=== PATIENT | male | born 1970 | race Caucasian/White ===

== ENCOUNTER 2024-04-08 15:30 | Emergency (ER) | payer SELFPAY ==
[2024-04-08 16:05] LABS: Absolute Eosinophils 0.1 K/uL (0-0.5); Absolute Lymphocytes (CBC) 1.1 K/uL (0.7-4.9); Absolute Monocytes 0.4 K/uL (0.1-1.3); Absolute Neutrophil 2.4 K/uL (1.8-8.0); Basophils % 0.5 % (0-1.3); Hematocrit 42.8 % (39.6-49.0); Hemoglobin 14.2 g/dL (13.6-17.9); Lymphocytes % 27.4 % (15.3-44.8); MCH 32.1 pg (27.0-35.0); MCHC 33.2 g/dL (32.0-36.0); MCV 96.7 fL (80-100); MPV 7.5 fL (7.6-11.3); Monocytes % 10.9 % (3.3-12.3); Neutrophils % 59.2 % (41.7-73.7); Platelets 161 thou/uL (152-406); RBC Red Blood Cell Count 4.42 M/uL (4.33-5.43); Red Cell Distribution Width 13.1 % (12.1-15.2)
--- NOTE | 2024-04-08 16:15 | RAD REPORT ---
EXAM DESCRIPTION: CT - Head Brain Wo Cont - 04/08/2024 4:00 pm CLINICAL HISTORY: Syncope COMPARISON: none TECHNIQUE: Computed axial tomography of the head was obtained. IV contrast was not requested. All CT scans are performed using dose optimization technique as appropriate and may include automated exposure control or mA/KV adjustment according to patient size. FINDINGS: An intracranial bleed is not seen The ventricles are normal in caliber No significant hypodense areas within the brain visualized No extra-axial fluid collection is noted. Fluid within the sinuses/ mastoids is not seen IMPRESSION: No acute intracranial abnormality is seen If patient's symptoms persist MRI of the brain would be recommended
[2024-04-08 16:22] LABS: ALT/SGPT 46 U/L (16-61); AST/SGOT 40 U/L (15-37); Albumin 3.2 g/dL (3.4-5.0); Albumin/Globulin Ratio 0.8 (1.1-1.8); Alkaline Phosphatase 59 U/L (45-117); Anion Gap 7.6 mEq/L (5.0-15.0); BUN Blood Urea Nitrogen 5 mg/dL (7-18); Bicarbonate 26 mEq/L (21-32); Bilirubin Total 0.4 mg/dL (0.2-1.0); Globulin 4.2 g/dL (2.3-3.5); Glomerular Filtration Rate 86 ml/min (=/>90); Glucose Level 109 mg/dL (74-106); Potassium 3.6 mEq/L (3.5-5.1); Protein, Total 7.4 g/dL (6.4-8.2); Sodium Level 131 mEq/L (136-145); Troponin High Sensitivity 4.3 pg/mL (<58.9)
[2024-04-08 16:26] LABS: Bilirubin Direct < 0.2 mg/dL (0-0.2); Bilirubin Indirect, Calculated 0.2 mg/dL (0.2-0.8)
--- NOTE | 2024-04-08 16:48 | RAD REPORT ---
EXAM DESCRIPTION: Rolando Single View04/08/2024 4:21 pm CLINICAL HISTORY: Syncope COMPARISON: none FINDINGS: The lungs appear clear of acute infiltrate. The heart is normal size IMPRESSION: No acute abnormalities displayed
[2024-04-08 17:44] LABS: SARS-CoV-2 Antigen CONTROL BLUE LINE VIS/BG OK; SARS-CoV-2 Antigen Rapid Res Negative (Negative)
--- NOTE | 2024-04-08 17:51 | ER ---
Nurse's Notes [facility] Name: Neno Vasques Age: 53 yrs Sex: Male : 1970 Arrival Date: 04/08/2024 Time: 15:30 Bed 2 Private MD: Diagnosis: Syncope, dehydration Presentation: 04/08 15:34 Chief complaint: EMS states: pt had 3 syncopal episodes while with his cat at the vet. [facility] reports positive orthostatics. Coronavirus screen: At this time, the client does not indicate any symptoms associated with coronavirus-19. Ebola Screen: No symptoms or risks identified at this time. Initial Sepsis Screen: Does the patient meet any 2 criteria? No. Patient's initial sepsis screen is negative. Does the patient have a suspected source of infection? No. Patient's initial sepsis screen is negative. Risk Assessment: Do you want to hurt yourself or someone else? Patient reports no desire to harm self or others. Onset of symptoms was April 08, 2024. 15:34 Method Of Arrival: EMS: [facility] [place] 15:34 Acuity: FAROOQ 3 [place] Triage Assessment: 15:36 General: Appears in no apparent distress. comfortable, well groomed, well developed, kc6 Behavior is calm, cooperative, appropriate for age. Pain: Denies pain. EENT: No signs and/or symptoms were reported regarding the EENT system. Neuro: Level of Consciousness is awake, alert, obeys commands, Oriented to person, place, time, situation, Appropriate for age Reports dizziness, a syncopal episode. Cardiovascular: Capillary refill < 3 seconds. Respiratory: Airway is patent Trachea midline Respiratory effort is even, unlabored, Respiratory pattern is regular, symmetrical. GI: No signs and/or symptoms were reported involving the gastrointestinal system. : No signs and/or symptoms were reported regarding the genitourinary system. Derm: No signs and/or symptoms reported regarding the dermatologic system. Skin is intact, is healthy with good turgor, Skin is pink, warm \T\ dry. Musculoskeletal: No signs and/or symptoms reported regarding the musculoskeletal system. Circulation, motion, and sensation intact. Capillary refill < 3 seconds, Range of motion: intact in all extremities. Historical: - Allergies: 15:36 No Known Allergies; kc6 - PMHx: 15:36 Hypertensive disorder; Hypothyroidism; kc6 - PSHx: 15:36 None; kc6 - Immunization history:: Adult Immunizations up to date. - Infectious Disease History:: Denies. - Social history:: Smoking status: Patient denies any tobacco usage or history of. Screenin:37 [facility] ED Fall Risk Assessment (Adult) History of falling in the last 3 months, kc6 including since admission No falls in past 3 months (0 pts) Confusion or Disorientation No (0 pts) Intoxicated or Sedated No (0 pts) Impaired Gait No (0 pts) Mobility Assist Device Used No (0 pt) Altered Elimination No (0 pt) Score/Fall Risk Level 0 - 2 = Low Risk. Abuse screen: Denies threats or abuse. Denies injuries from another. Nutritional screening: No deficits noted. Tuberculosis screening: No symptoms or risk factors identified. Assessment: 15:37 Reassessment: please see triage. kc6 17:30 Reassessment: Patient appears in no apparent distress at this time. Patient and/or db family updated on plan of care and expected duration. Pain level reassessed. Patient is alert, oriented x 3, equal unlabored respirations, skin warm/dry/pink. 18:07 Reassessment: Patient appears in no apparent distress at this time. Patient and/or db family updated on plan of care and expected duration. Pain level reassessed. Patient is alert, oriented x 3, equal unlabored respirations, skin warm/dry/pink. Reassessment: Patient states feeling better. Patient states symptoms have improved. General: Appears in no apparent distress. comfortable, Behavior is calm, cooperative. Neuro: Level of Consciousness is awake, alert, obeys commands, Oriented to person, place, time, situation. Cardiovascular: Rhythm is regular. Respiratory: Airway is patent Respiratory effort is even, unlabored, Respiratory pattern is regular, symmetrical. Vital Signs: 15:34 BP 132 / 95; Pulse 85; Resp 18 S; Temp 98.1(O); Pulse Ox 98% on R/A; Weight 79.38 kg kc6 (R); Height 10 ft. 0 in. (R); Pain 0/10; 16:30 BP 124 / 91; Pulse 68; Resp 16; Pulse Ox 99% on R/A; db 17:00 BP 126 / 82; Pulse 66; Resp 16; Pulse Ox 99% on R/A; db 17:39 BP 128 / 88 Sitting; Pulse 64; Resp 17; Pulse Ox 100% on R/A; bc6 17:39 BP 122 / 85 Supine; Pulse 62; Resp 16; Pulse Ox 98% on R/A; bc6 17:39 BP 120 / 85 Standing; Pulse 75; Resp 17; Pulse Ox 100% on R/A; bc6 17:45 BP 124 / 88; Pulse 61; Resp 16; Pulse Ox 100% on R/A; db 15:34 Body Mass Index 8.54 (79.38 kg, 304.8 cm) kc6 15:34 Pain Scale: Adult kc6 ED Course: 15:33 Patient arrived in ED. sp3 15:33 Isabelle Duffy MD is Attending Physician. sp3 15:34 Mellissa Mallory, RN is Primary Nurse. kc6 15:36 Triage completed. kc6 15:36 Arm band placed on. kc6 15:37 Maintain EMS IV. Dressing intact. Good blood return noted. Site clean \T\ dry. Gauge \T\ mera 6 site: 18G RAC. 15:38 Patient has correct armband on for positive identification. Bed in low position. Call kc6 light in reach. Side rails up X2. Pulse ox on. NIBP on. Pillow given. 15:52 Inserted saline lock: 22 gauge in right antecubital area, using aseptic technique. kc6 Blood collected. 16:02 CT Head Brain wo Cont In Process Unspecified. EDMS 16:23 Chest Single View XRAY In Process Unspecified. EDMS 17:33 Strep Sent. bc6 17:33 Flu Sent. bc6 17:33 SARS RAPID Sent. bc6 18:07 Provided Education on: DISCHARGE. db 18:07 No provider procedures requiring assistance completed. IV discontinued, intact, db bleeding controlled, No redness/swelling at site. Administered Medications: No medications were administered Medication: 18:07 VIS not applicable for this client. db Outcome: 17:50 Discharge ordered by . sp3 18:07 Discharged to home ambulatory, db 18:07 Condition: stable 18:07 Discharge instructions given to patient, Instructed on discharge instructions, follow up and referral plans. 18:08 Patient left the ED. db Signatures: Dispatcher [employer] EDMS Isabelle Duffy MD MD sp3 Mellissa Mallory, RN RN kc6 Karma Mayorga, RN RN db Chitra Quintero 6
--- NOTE | 2024-04-08 17:51 | EDPHYS ---
Physician Documentation [facility] Name: Neno Vasques Age: 53 yrs Sex: Male : 1970 Arrival Date: 04/08/2024 Time: 15:30 Bed 2 Private MD: ED Physician Isabelle Duffy HPI: 04/08 15:43 This 53 yrs old Male presents to ER via EMS with complaints of Syncope. sp3 15:43 53-year-old male with history of hypertension, hypothyroidism presents to the ED with sp3 syncopal episode x 3 while at the local [employer] office. Patient states that he has had several days of chills, cough and bodyaches and states it felt like this when he last had COVID-19. Patient also states he has had a lot of travel and has had decreased p.o. intake and decreased urine output. Patient was orthostatic for prehospital crew and blood pressure dramatically improved after 400 mL of normal saline given while in route to the ED. Patient is now currently asymptomatic and has no complaints. He currently denies headache, chest pain, shortness of breath, abdominal pain, vomiting, diarrhea, rash, or any other signs or symptoms on ROS at this time.. Historical: - Allergies: 15:36 No Known Allergies; kc6 - PMHx: 15:36 Hypertensive disorder; Hypothyroidism; kc6 - PSHx: 15:36 None; kc6 - Immunization history:: Adult Immunizations up to date. - Infectious Disease History:: Denies. - Social history:: Smoking status: Patient denies any tobacco usage or history of. ROS: 15:49 Eyes: Negative for injury, pain, redness, and discharge, ENT: Negative for injury, sp3 pain, and discharge, Neck: Negative for injury, pain, and swelling, Cardiovascular: Negative for chest pain, palpitations, and edema, Respiratory: Negative for shortness of breath, cough, wheezing, and pleuritic chest pain, Abdomen/GI: Negative for abdominal pain, nausea, vomiting, diarrhea, and constipation, Back: Negative for injury and pain, MS/Extremity: Negative for injury and deformity, Skin: Negative for injury, rash, and discoloration, Psych: Negative for depression, anxiety, suicide ideation, homicidal ideation, and hallucinations, Allergy/Immunology: Negative for hives, rash, and allergies, Endocrine: Negative for neck swelling, polydipsia, polyuria, polyphagia, and marked weight changes, Hematologic/Lymphatic: Negative for swollen nodes, abnormal bleeding, and unusual bruising, 15:49 All other systems are negative, Exam: 15:49 Constitutional: This is a well developed, well nourished patient who is awake, alert, sp3 and in no acute distress. Head/Face: Normocephalic, atraumatic. Eyes: Pupils equal round and reactive to light, extra-ocular motions intact. Lids and lashes normal. Conjunctiva and sclera are non-icteric and not injected. Cornea within normal limits. Periorbital areas with no swelling, redness, or edema. ENT: Nares patent. No nasal discharge, no septal abnormalities noted. External auditory canals are clear. Oropharynx with no redness, swelling, or masses, exudates, or evidence of obstruction, uvula midline. Mucous membranes moist. Neck: Trachea midline, no thyromegaly or masses palpated, and no cervical lymphadenopathy. Supple, full range of motion without nuchal rigidity, or vertebral point tenderness. No Meningismus. Chest/axilla: Normal chest wall appearance and motion. Nontender with no deformity. No lesions are appreciated. Cardiovascular: Regular rate and rhythm with a normal S1 and S2. No gallops, murmurs, or rubs. Normal PMI, no JVD. No pulse deficits. Respiratory: Lungs have equal breath sounds bilaterally, clear to auscultation and percussion. No rales, rhonchi or wheezes noted. No increased work of breathing, no retractions or nasal flaring. Abdomen/GI: Soft, non-tender, with normal bowel sounds. No distension or tympany. No guarding or rebound. No evidence of tenderness throughout. Back: No spinal tenderness. No costovertebral tenderness. Full range of motion. Skin: Warm, dry with normal turgor. Normal color with no rashes, no lesions, and no evidence of cellulitis. MS/ Extremity: Pulses equal, no cyanosis. Neurovascular intact. Full, normal range of motion. Neuro: Awake and alert, GCS 15, oriented to person, place, time, and situation. Cranial nerves II-XII grossly intact. Motor strength 5/5 in all extremities. Sensory grossly intact. Cerebellar exam normal. Normal gait. Psych: Awake, alert, with orientation to person, place and time. Behavior, mood, and affect are within normal limits. 15:49 ECG was reviewed by the Attending Physician. EKG demonstrates normal sinus rhythm at 60 bpm with normal intervals, normal QRS, normal axis, nonspecific diffuse ST's ST changes without evidence of acute ischemia. Vital Signs: 15:34 BP 132 / 95; Pulse 85; Resp 18 S; Temp 98.1(O); Pulse Ox 98% on R/A; Weight 79.38 kg kc6 (R); Height 10 ft. 0 in. (R); Pain 0/10; 16:30 BP 124 / 91; Pulse 68; Resp 16; Pulse Ox 99% on R/A; db 17:00 BP 126 / 82; Pulse 66; Resp 16; Pulse Ox 99% on R/A; db 17:39 BP 128 / 88 Sitting; Pulse 64; Resp 17; Pulse Ox 100% on R/A; bc6 17:39 BP 122 / 85 Supine; Pulse 62; Resp 16; Pulse Ox 98% on R/A; bc6 17:39 BP 120 / 85 Standing; Pulse 75; Resp 17; Pulse Ox 100% on R/A; bc6 17:45 BP 124 / 88; Pulse 61; Resp 16; Pulse Ox 100% on R/A; db 15:34 Body Mass Index 8.54 (79.38 kg, 304.8 cm) 6 15:34 Pain Scale: Adult kc6 MDM: 15:34 Patient medically screened. sp3 17:39 Data reviewed: vital signs, nurses notes, lab test result(s), EKG, radiologic studies. sp3 ED course: Patient feeling much improved and vital signs are within normal limits. Orthostatics are pending. CT scan of the head is negative laboratory values demonstrate mild dehydration. IV fluids have already been given. Swabs are pending and if negative, we will safely discharge patient home to PCP follow-up.. 04/08 15:34 Order name: Basic Metabolic Panel; Complete Time: 17:18 sp3 04/08 15:34 Order name: CBC with Diff; Complete Time: 17:18 sp3 04/08 15:34 Order name: Hepatic Function; Complete Time: 17:18 sp3 04/08 15:34 Order name: Magnesium; Complete Time: 17:18 sp3 04/08 15:34 Order name: Troponin High Sensitivity; Complete Time: 17:18 sp3 04/08 15:48 Order name: SARS RAPID; Complete Time: 17:45 sp3 04/08 15:48 Order name: Flu; Complete Time: 17:50 sp3 04/08 15:48 Order name: Strep; Complete Time: 17:50 sp3 04/08 17:49 Order name: Throat Culture EDMS 04/08 15:34 Order name: CT Head Brain wo Cont; Complete Time: 17:18 sp3 04/08 15:34 Order name: Chest Single View XRAY; Complete Time: 17:18 sp3 04/08 15:34 Order name: Cardiac monitoring; Complete Time: 15:52 sp3 04/08 15:34 Order name: EKG - Nurse/Tech; Complete Time: 15:52 sp3 04/08 15:34 Order name: IV Saline Lock; Complete Time: 15:38 sp3 04/08 15:34 Order name: Labs collected and sent; Complete Time: 15:52 sp3 04/08 15:34 Order name: NPO; Complete Time: 15:38 sp3 04/08 15:34 Order name: O2 Sat Monitoring; Complete Time: 15:38 sp3 04/08 15:34 Order name: Orthostatics; Complete Time: 17:36 sp3 04/08 17:45 Order name: Misc. Order: Finish administration of NS 1L started by EMS; Complete Time: sp3 18:09 Administered Medications: No medications were administered Disposition Summary: 04/08/24 17:50 Discharge Ordered Notes: Location: Home sp3 Condition: Stable sp3 Diagnosis - Syncope, dehydration sp3 Followup: sp3 - With: Private Physician - When: Upon discharge from the Emergency Department - Reason: Continuance of care Discharge Instructions: - Discharge Summary Sheet sp3 - Dehydration, Adult sp3 - Syncope sp3 Forms: - Medication Reconciliation Form sp3 - Antibiotic Education sp3 - Prescription Opioid Use sp3 - Patient Portal Instructions sp3 - Leadership Thank You Letter sp3 Signatures: Dispatcher [employer] EDMS Isabelle Duffy MD MD sp3 Mellissa Mallory RN RN kc6 Corrections: (The following items were deleted from the chart) 15:35 15:35 Head Brain Wo Cont+CT.RAD.BRZ ordered. EDIL EDIL 15:35 15:35 Chest Single View+RAD.RAD.BRZ ordered. EDMS EDMS 15:49 15:43 53-year-old male with history of hypertension, hypothyroidism presents to the ED sp3 with syncopal episode x 3 [facility] the local [facility] office. Patient states that he has had. sp3
[2024-04-08 18:56] VITALS: BP 124/88; TEMP 98.1; O2SAT 100
--- NOTE | 2024-04-09 15:08 | EKG ---
Test Date: 2024-04-08 Test Time: 15:39:43 Audience Coordinator: [place] MEASUREMENT RESULTS: Intervals: Rate: 58 [place]: 168 QRSD: 94 QT: 418 QTc: 410 [place]: P: 60 [place]: 168 QRS: -25 T: 41 INTERPRETIVE STATEMENTS: Sinus bradycardia Otherwise normal ECG No previous ECG available for comparison Electronically Signed On 04-09-24 15:06:02 CDT by Mauricio Jenkins
== END 2024-04-08 18:08 | disposition home or self-care (01) ==
LOC: ER 15:30
DX: R55 Syncope and collapse (principal); E86.0 Dehydration
CPT/HCPCS: 36415; 70450; 71045; 80048; 80076; 83735; 84484; 85025; 87070; 87081; 87804; 87811; 93005; 99284